=== PATIENT | male | born 1945 | race Asian ===

== ENCOUNTER 2022-04-09 04:59 | Inpatient (IN) | payer OTHER, SELFPAY ==
[2022-04-09] MEDS ORDERED: ACETAMINOPHEN 1000 MG/100 ML BAG IVPB ONE (06:05)
[2022-04-09] MEDS ORDERED: ONDANSETRON 4 MG/2 ML VIAL IVPB ONE (06:06)
[2022-04-09] MEDS ORDERED: ONDANSETRON 4 MG/2 ML VIAL ONE (06:21)
[2022-04-09] MEDS ORDERED: ACETAMINOPHEN INJECTION 100 ML IVPB ONE (06:21)
[2022-04-09 06:35] LABS: BASO % 0.4 % (0-2.0); HEMATOCRIT 44.3 % (35.4-49); HEMOGLOBIN 14.4 GM/dL (11.7-16.9); LYMPH % 10.4 % (8-40); MCH 29.3 pg (25.7-33.7); MCHC 32.5 g/dl (32.0-35.9); MEAN PLT VOLUME 8.9 fl (7.5-11.1); MONO % 3.6 % (3.8-10.2); NEUT % 85.6 % (42.8-82.8); PLATELET COUNT 188 10^3/uL (134-434); RBC 4.93 M/mm3 (4.00-5.60); RDW 13.3 % (11.9-15.9)
[2022-04-09 06:37] LABS: VENOUS BASE EXCESS 2.9 mmol/L (-2-2); VENOUS O2 SATURATION 44.8 % (70-80); VENOUS PCO2 50.9 mmHg (38-52); VENOUS PH 7.376 (7.310-7.410)
[2022-04-09 06:56] LABS: BLOOD UREA NITROGEN 20.8 mg/dL (7-18); CALCIUM 9.7 mg/dL (8.5-10.1); MAGNESIUM 2.1 mg/dL (1.8-2.4)
[2022-04-09 06:59] LABS: CREATININE 0.8 mg/dL (0.55-1.3)
[2022-04-09 07:01] LABS: BILIRUBIN,TOTAL 0.8 mg/dL (0.2-1); TOT PROT 7.8 g/dl (6.4-8.2)
[2022-04-09] MEDS ORDERED: FAMOTIDINE 20 MG TABLET PO ONE (07:31)
[2022-04-09] MEDS ORDERED: MAG HYDROX/AL HYDROX/SIMETH 30 ML UNIT-DOSE CUP PO ONE (07:31)
[2022-04-09] MEDS ORDERED: FAMOTIDINE 20 MG TABLET ONE (07:45)
[2022-04-09] MEDS ORDERED: MAG HYDROX/AL HYDROX/SIMETH 30 ML UNIT-DOSE CUP ONE (07:45)
[2022-04-09] MEDS ORDERED: KETOROLAC TROMETHAMINE 15 MG/ML VIAL IVPUSH ONE (12:57)
[2022-04-09] MEDS ORDERED: KETOROLAC TROMETHAMINE 15 MG/ML VIAL ONE (13:21)
[2022-04-09 16:43] LABS: EPI CELLS 9 /uL (0-25.1); HYALINE CASTS 0 /uL (0-3.1); URINE APPEARANCE CLEAR; URINE BACTERIA 37 /uL (0-1359); URINE BILIRUBIN NEGATIVE (NEGATIVE); URINE COLOR YELLOW; URINE GLUCOSE (UA) NEGATIVE (NEGATIVE); URINE KETONE NEGATIVE (NEGATIVE); URINE LEUK ESTERASE NEGATIVE (NEGATIVE); URINE NITRITE NEGATIVE (NEGATIVE); URINE PROTEIN 1+ (NEGATIVE); URINE RBC 30 /uL (0-23.9); URINE UROBILINOGEN 0.2 mg/dL (0.2-1.0); URINE WBC 7 /uL (0-25.8)
[2022-04-09] MEDS ORDERED: SODIUM CHLORIDE 1,000 ML IV SCH (18:00)
[2022-04-09] MEDS: D5-1/2NS+20 MEQ KCL - 20 MEQ/1,000 ML INFUS.BAG IV SCH (19:59)
[2022-04-09] MEDS: ACETAMINOPHEN 1000 MG/100 ML BAG IVPB PRN (23:24)
[2022-04-09] MEDS: ATORVASTATIN CA 10 MG TABLET (FP) PO SCH (23:24)
[2022-04-10 01:47] VITALS: BMI 29.6
[2022-04-10] MEDS: LEVOTHYROXINE NA 75 MCG TABLET (FP) PO SCH (07:00)
[2022-04-10 10:00] LABS: BASO % 0.5 % (0-2.0); EOS % 0.1 % (0-4.5); HEMOGLOBIN 13.7 GM/dL (11.7-16.9); LYMPH % 8.3 % (8-40); MCH 29.4 pg (25.7-33.7); MCHC 32.7 g/dl (32.0-35.9); MEAN PLT VOLUME 9.4 fl (7.5-11.1); NEUT % 85.1 % (42.8-82.8); PLATELET COUNT 165 10^3/uL (134-434); RBC 4.66 M/mm3 (4.00-5.60); RDW 13.4 % (11.9-15.9); WHITE BLOOD COUNT 16.7 K/mm3 (4.0-10.0)
[2022-04-10] MEDS ORDERED: ENOXAPARIN NA (PORCINE) 40 MG/0.4 ML DISP.SYRIN SQ SCH (10:00)
[2022-04-10 10:29] LABS: ALBUMIN 3.3 g/dl (3.4-5.0); CALCIUM 8.8 mg/dL (8.5-10.1)
[2022-04-10 10:30] LABS: MAGNESIUM 2.2 mg/dL (1.8-2.4)
[2022-04-10 10:33] LABS: CREATININE 0.9 mg/dL (0.55-1.3); PHOSPHOROUS 2.8 mg/dL (2.5-4.9)
[2022-04-10 10:34] LABS: BILIRUBIN,TOTAL 1.6 mg/dL (0.2-1); TOT PROT 6.8 g/dl (6.4-8.2)
[2022-04-10] MEDS: TAMSULOSIN HCL 0.4 MG CAP PO SCH ×2 (10:41→12:08)
[2022-04-10] MEDS: LISINOPRIL 5 MG TABLET PO SCH ×2 (10:48→12:08)
[2022-04-10] MEDS: D5-1/2NS+20 MEQ KCL - 20 MEQ/1,000 ML INFUS.BAG IV SCH ×2 (12:11→21:50)
[2022-04-10 12:41] LABS: BILIRUBIN,DIRECT 0.4 mg/dL (0.0-0.2)
[2022-04-10] MEDS: ACETAMINOPHEN 1000 MG/100 ML BAG IVPB PRN (17:45)
[2022-04-10] MEDS: ATORVASTATIN CA 10 MG TABLET (FP) PO SCH (21:50)
[2022-04-11] MEDS: D5-1/2NS+20 MEQ KCL - 20 MEQ/1,000 ML INFUS.BAG IV SCH ×2 (02:04→17:12)
[2022-04-11] MEDS: ACETAMINOPHEN 1000 MG/100 ML BAG IVPB PRN (05:47)
[2022-04-11] MEDS: LEVOTHYROXINE NA 75 MCG TABLET (FP) PO SCH (06:04)
[2022-04-11] MEDS: TAMSULOSIN HCL 0.4 MG CAP PO SCH (08:50)
[2022-04-11] MEDS: LISINOPRIL 5 MG TABLET PO SCH ×2 (08:50→10:44)
[2022-04-11 10:29] LABS: INR 1.6 (0.83-1.09); PROTHROMBIN TIME (PATIENT) 18.5 SEC (9.7-13.0)
[2022-04-11 10:30] LABS: BASO % 0.3 % (0-2.0); EOS % 0.1 % (0-4.5); HEMATOCRIT 40.7 % (35.4-49); HEMOGLOBIN 13.4 GM/dL (11.7-16.9); LYMPH % 7.4 % (8-40); MCH 29.5 pg (25.7-33.7); MEAN CELL VOLUME 89.5 fl (80-96); MONO % 5.2 % (3.8-10.2); PLATELET COUNT 148 10^3/uL (134-434); RBC 4.55 M/mm3 (4.00-5.60); RDW 13.4 % (11.9-15.9); WHITE BLOOD COUNT 16.8 K/mm3 (4.0-10.0)
[2022-04-11 10:45] LABS: ALBUMIN 2.8 g/dl (3.4-5.0); CALCIUM 8.3 mg/dL (8.5-10.1); MAGNESIUM 2.2 mg/dL (1.8-2.4)
[2022-04-11 10:48] LABS: CREATININE 0.8 mg/dL (0.55-1.3)
[2022-04-11 10:50] LABS: BILIRUBIN,TOTAL 1.2 mg/dL (0.2-1); TOT PROT 6.1 g/dl (6.4-8.2)
[2022-04-11] MEDS ORDERED: MIDAZOLAM HCL 2 MG/2 ML SINGLE DOSE VIAL ONE (12:07)
[2022-04-11] MEDS ORDERED: PROPOFOL 40 ML ONE (12:07)
[2022-04-11] MEDS ORDERED: FENTANYL CITRATE/PF 50 MCG/ML VIAL ONE ×4 (12:07→14:02)
[2022-04-11] MEDS ORDERED: LIDOCAINE HCL 2% 100 MG/5 ML DISP.SYRIN ONE (12:27)
[2022-04-11] MEDS ORDERED: BUPIVACAINE HCL/PF 0.25% (2.5MG/ML) 10 ML VIAL IJ ONE (12:30)
[2022-04-11] MEDS ORDERED: BUPIVACAINE HCL/PF 0.25% (2.5MG/ML) 10 ML VIAL ONE (12:33)
[2022-04-11] MEDS ORDERED: ONDANSETRON 4 MG/2 ML VIAL ONE (12:37)
[2022-04-11] MEDS ORDERED: ceFAZolin SODIUM 1 GM VIAL ONE ×2 (12:37)
[2022-04-11] MEDS ORDERED: DEXAMETHASONE SOD PHOSPHATE 4 MG/1 ML VIAL ONE (12:37)
[2022-04-11] MEDS ORDERED: NEOSTIGMINE METHYLSULFATE 0.5 MG/ML - 10 ML MDV ONE (13:53)
[2022-04-11] MEDS ORDERED: GLYCOPYRROLATE 0.2 MG/1 ML VIAL ONE ×4 (13:53→14:05)
[2022-04-11] MEDS ORDERED: ONDANSETRON 4 MG/2 ML VIAL IVPUSH PRN (14:21)
[2022-04-11] MEDS ORDERED: LACTATED RINGERS SOLUTION 1,000 ML IV SCH (14:30)
[2022-04-11] MEDS ORDERED: IBUPROFEN 600 MG TABLET (FP) PO PRN (14:38)
[2022-04-11] MEDS ORDERED: ACETAMINOPHEN 1000 MG/100 ML BAG IVPB PRN (15:08)
[2022-04-11] MEDS: oxyCODONE HCL 5 MG TABLET PO PRN (18:19)
[2022-04-11] MEDS: ATORVASTATIN CA 10 MG TABLET (FP) PO SCH (23:34)
[2022-04-12] MEDS: oxyCODONE HCL 5 MG TABLET PO PRN (04:40)
[2022-04-12] MEDS: LEVOTHYROXINE NA 75 MCG TABLET (FP) PO SCH (06:33)
[2022-04-12 06:37] VITALS: RESP 20
[2022-04-12] MEDS: TAMSULOSIN HCL 0.4 MG CAP PO SCH (09:12)
[2022-04-12] MEDS: LISINOPRIL 5 MG TABLET PO SCH (09:12)
[2022-04-12] MEDS: ACETAMINOPHEN 500 MG TABLET (FP) PO PRN (09:13)
[2022-04-12 10:40] LABS: BASO % 0.1 % (0-2.0); HEMATOCRIT 39.3 % (35.4-49); HEMOGLOBIN 13.3 GM/dL (11.7-16.9); LYMPH % 7.3 % (8-40); MCH 30.3 pg (25.7-33.7); MCHC 33.9 g/dl (32.0-35.9); MEAN CELL VOLUME 89.4 fl (80-96); MEAN PLT VOLUME 9.4 fl (7.5-11.1); MONO % 6.2 % (3.8-10.2); NEUT % 86.4 % (42.8-82.8); PLATELET COUNT 159 10^3/uL (134-434); RBC 4.39 M/mm3 (4.00-5.60); RDW 13.2 % (11.9-15.9); WHITE BLOOD COUNT 14.8 K/mm3 (4.0-10.0)
[2022-04-12 11:03] LABS: CALCIUM 8.5 mg/dL (8.5-10.1)
[2022-04-12 11:04] LABS: ALBUMIN 2.7 g/dl (3.4-5.0); MAGNESIUM 2.3 mg/dL (1.8-2.4)
[2022-04-12 11:06] LABS: CREATININE 0.8 mg/dL (0.55-1.3)
[2022-04-12 11:08] LABS: TOT PROT 6.4 g/dl (6.4-8.2)
[2022-04-12 11:10] LABS: BILIRUBIN,TOTAL 0.9 mg/dL (0.2-1)
[2022-04-12] MEDS: D5-1/2NS+20 MEQ KCL - 20 MEQ/1,000 ML INFUS.BAG IV SCH (18:02)
[2022-04-12] MEDS ORDERED: LISINOPRIL 5 MG TABLET PO ONE (21:05)
[2022-04-12] MEDS: ATORVASTATIN CA 10 MG TABLET (FP) PO SCH (21:33)
[2022-04-13] MEDS: D5-1/2NS+20 MEQ KCL - 20 MEQ/1,000 ML INFUS.BAG IV SCH (01:45)
[2022-04-13] MEDS: oxyCODONE HCL 5 MG TABLET PO PRN (03:48)
[2022-04-13] MEDS: LEVOTHYROXINE NA 75 MCG TABLET (FP) PO SCH (06:05)
[2022-04-13 06:41] VITALS: BP 149/77; PULSE 58; TEMP 98
[2022-04-13] MEDS: TAMSULOSIN HCL 0.4 MG CAP PO SCH (09:59)
[2022-04-13] MEDS: LISINOPRIL 5 MG TABLET PO SCH (09:59)
[2022-04-13] MEDS: ACETAMINOPHEN 500 MG TABLET (FP) PO PRN (10:06)
[2022-04-13 10:21] LABS: BASO % 0.3 % (0-2.0); EOS % 1.4 % (0-4.5); HEMATOCRIT 39.1 % (35.4-49); HEMOGLOBIN 13.3 GM/dL (11.7-16.9); MCH 30.2 pg (25.7-33.7); MEAN CELL VOLUME 88.8 fl (80-96); MEAN PLT VOLUME 9.1 fl (7.5-11.1); MONO % 10.6 % (3.8-10.2); NEUT % 69.7 % (42.8-82.8); PLATELET COUNT 156 10^3/uL (134-434); RDW 13.3 % (11.9-15.9); WHITE BLOOD COUNT 10.8 K/mm3 (4.0-10.0)
[2022-04-13 11:03] LABS: ALBUMIN 2.5 g/dl (3.4-5.0)
[2022-04-13 11:04] LABS: BLOOD UREA NITROGEN 17.3 mg/dL (7-18); MAGNESIUM 1.9 mg/dL (1.8-2.4)
[2022-04-13 11:06] LABS: CREATININE 0.6 mg/dL (0.55-1.3)
[2022-04-13 11:08] LABS: BILIRUBIN,TOTAL 0.8 mg/dL (0.2-1); TOT PROT 5.8 g/dl (6.4-8.2)
== END 2022-04-13 13:24 | disposition home or self-care (01) | DRG 419 ==
LOC: JER 04:59 → JERBED 17:58 → J8W 21:48 → OBSVTOIN 04-10 13:19
PROVIDERS: ADMIT Internal Medicine; ATTEND Nurse Practitioner Acute Care
PROC: 0FT44ZZ Resection of Gallbladder, Percutaneous Endoscopic Approach (ICD-10-PCS; principal; 2022-04-11 11:30)
DX: K80.00 Calculus of gallbladder with acute cholecystitis without obstruction (principal); I10 Essential (primary) hypertension; E78.5 Hyperlipidemia, unspecified; N40.0 Benign prostatic hyperplasia without lower urinary tract symptoms; E03.9 Hypothyroidism, unspecified
CPT/HCPCS: 0241U-QW; 36415; 71046-TC-FY; 74174-TC; 76705-TC; 78226-TC; 80053; 81003; 82248; 82803; 83605; 83690; 83735; 84100; 84484; 85025; 85610; 88304-TC; 93005; 93010; 94760; 99285-25; A9537; G0378

== ENCOUNTER 2023-04-22 08:44 | Observation (INO) | payer OTHER ==
[2023-04-22] MEDS ORDERED: ONDANSETRON 4 MG/2 ML VIAL IVPUSH ONE (09:41)
[2023-04-22] MEDS ORDERED: ACETAMINOPHEN 1000 MG/100 ML BAG IVPB ONE (09:41)
[2023-04-22] MEDS ORDERED: FAMOTIDINE 20 MG/50 ML IVPB 20 MG/50 ML MG IVPB ONE ×2 (09:41→09:48)
[2023-04-22] MEDS ORDERED: ONDANSETRON 4 MG/2 ML VIAL ONE (09:48)
[2023-04-22] MEDS ORDERED: ACETAMINOPHEN INJECTION 100 ML IVPB ONE (09:48)
[2023-04-22 10:05] LABS: BASO % 0.6 % (0-2.0); EOS % 0.8 % (0-4.5); HEMATOCRIT 44.1 % (35.4-49); LYMPH % 13.9 % (8-40); MCH 30.3 pg (25.7-33.7); MCHC 33.9 g/dl (32.0-35.9); MEAN CELL VOLUME 89.4 fl (80-96); MEAN PLT VOLUME 8.5 fl (7.5-11.1); NEUT % 81.7 % (42.8-82.8); PLATELET COUNT 188 10^3/uL (134-434); RBC 4.94 M/mm3 (4.00-5.60); RDW 13.4 % (11.9-15.9); WHITE BLOOD COUNT 7.7 K/mm3 (4.0-10.0)
[2023-04-22 10:11] LABS: INR 1.07 (0.83-1.09); PROTHROMBIN TIME (PATIENT) 12.4 SEC (9.7-13.0)
[2023-04-22 10:14] LABS: ACTIVATED PTT 29.7 SECONDS (25.2-36.5)
[2023-04-22 10:32] LABS: N-TERMINAL BNP 178.9 pg/ml (5-450)
[2023-04-22 10:44] LABS: ALBUMIN 3.8 g/dl (3.4-5.0); BILIRUBIN,TOTAL 0.9 mg/dL (0.2-1); BLOOD UREA NITROGEN 12.8 mg/dL (7-18); CALCIUM 8.8 mg/dL (8.5-10.1); CREATININE 0.8 mg/dL (0.55-1.3); MAGNESIUM 2.2 mg/dL (1.8-2.4); POTASSIUM 3.7 mmol/L (3.5-5.1); TOT PROT 7.7 g/dl (6.4-8.2)
[2023-04-22] MEDS ORDERED: SODIUM CHLORIDE 0.9% 500 ML INFUS.BAG IV ONE (11:15)
[2023-04-22] MEDS ORDERED: hydrALAZINE HCL 10 MG TABLET PO ONE (11:57)
[2023-04-22] MEDS ORDERED: hydrALAZINE HCL 10 MG TABLET ONE (12:10)
[2023-04-22] MEDS ORDERED: LISINOPRIL 20 MG TABLET ONE (12:56)
[2023-04-22] MEDS ORDERED: amLODIPine BESYLATE 10 MG TABLET (FP) ONE (12:56)
[2023-04-22] MEDS: LISINOPRIL 20 MG TABLET PO SCH (12:58)
[2023-04-22] MEDS: amLODIPine BESYLATE 10 MG TABLET (FP) PO SCH (12:58)
[2023-04-22] MEDS: FINASTERIDE 5 MG TABLET (FP) PO SCH (14:17)
[2023-04-22 16:11] LABS: PH,URINE 6.5 (5.0-8.0); URINE APPEARANCE CLEAR; URINE BILIRUBIN NEGATIVE (NEGATIVE); URINE COLOR YELLOW; URINE GLUCOSE (UA) NEGATIVE (NEGATIVE); URINE KETONE NEGATIVE (NEGATIVE); URINE LEUK ESTERASE NEGATIVE (NEGATIVE); URINE NITRITE NEGATIVE (NEGATIVE); URINE PROTEIN NEGATIVE (NEGATIVE); URINE UROBILINOGEN 0.2 mg/dL (0.2-1.0)
[2023-04-22] MEDS ORDERED: ATORVASTATIN CA 10 MG TABLET (FP) ONE (21:45)
[2023-04-22] MEDS ORDERED: ATORVASTATIN CA 10 MG TABLET (FP) PO SCH (22:00)
[2023-04-23 00:20] VITALS: BMI 31.1
[2023-04-23 07:49] LABS: POTASSIUM 3.8 mmol/L (3.5-5.1)
[2023-04-23 07:52] LABS: BLOOD UREA NITROGEN 16.9 mg/dL (7-18); CALCIUM 8.9 mg/dL (8.5-10.1)
[2023-04-23 07:53] LABS: MAGNESIUM 2.2 mg/dL (1.8-2.4)
[2023-04-23 07:55] LABS: CHOLESTEROL 175 mg/dL (50-200)
[2023-04-23 07:56] LABS: CREATININE 0.7 mg/dL (0.55-1.3)
[2023-04-23 07:57] LABS: LDL CHOLESTEROL (ONLY SJRH) 100 mg/dL (5-100)
[2023-04-23 07:59] LABS: HDL CHOLESTEROL 52 mg/dL (40-60)
[2023-04-23] MEDS: amLODIPine BESYLATE 10 MG TABLET (FP) PO SCH (09:42)
[2023-04-23] MEDS: FINASTERIDE 5 MG TABLET (FP) PO SCH (09:42)
[2023-04-23] MEDS: LISINOPRIL 20 MG TABLET PO SCH (09:43)
[2023-04-23] MEDS ORDERED: ENOXAPARIN NA (PORCINE) 40 MG/0.4 ML DISP.SYRIN SQ SCH (10:00)
[2023-04-23] MEDS ORDERED: amLODIPine BESYLATE 10 MG TABLET (FP) PO SCH ×2 (10:29→10:32)
[2023-04-23] MEDS ORDERED: LISINOPRIL 20 MG TABLET PO SCH (10:33)
[2023-04-23 17:08] VITALS: BP 118/59; PULSE 66; RESP 16; TEMP 97.2
[2023-04-24] MEDS ORDERED: LISINOPRIL 20 MG, LISINOPRIL 10 MG PO SCH (10:00)
== END 2023-04-23 17:12 | disposition home or self-care (01) ==
LOC: JER 08:44 → JERBED 11:21 → J4W 23:41
PROVIDERS: ADMIT Internal Medicine; ATTEND Internal Medicine
PROC: 3E033NZ Introduction of Analgesics, Hypnotics, Sedatives into Peripheral Vein, Percutaneous Approach (ICD-10-PCS; principal; 2023-04-22)
PROC: 3E023GC Introduction of Other Therapeutic Substance into Muscle, Percutaneous Approach (ICD-10-PCS; 2023-04-22)
PROC: 3E033GC Introduction of Other Therapeutic Substance into Peripheral Vein, Percutaneous Approach (ICD-10-PCS; 2023-04-22)
PROC: 3E0337Z Introduction of Electrolytic and Water Balance Substance into Peripheral Vein, Percutaneous Approach (ICD-10-PCS; 2023-04-22)
DX: I16.0 Hypertensive urgency (principal); R00.1 Bradycardia, unspecified; E78.5 Hyperlipidemia, unspecified; N40.0 Benign prostatic hyperplasia without lower urinary tract symptoms; R42 Dizziness and giddiness; E03.9 Hypothyroidism, unspecified; Z87.738 Personal history of other specified (corrected) congenital malformations of digestive system; Z90.49 Acquired absence of other specified parts of digestive tract
CPT/HCPCS: 0241U-QW; 36415; 70450-TC; 71045-TC-FY; 80048; 80053; 80061; 81003; 83036; 83690; 83735; 83880; 84439; 84443; 84484; 85025; 85610; 85730; 87086; 93005; 93010; 93306-TC; 96365; 96372; 96375; 97116-GP; 97161-GP; 99285-25; G0378